=== PATIENT | female | born 1955 | race Asian ===

== ENCOUNTER 2021-07-19 10:49 | Emergency (ER) | payer BC, SELFPAY ==
[2021-07-19 10:57] VITALS: BP 167/78; PULSE 71; RESP 16; TEMP 36.8; O2SAT 100
[2021-07-19 11:03] VITALS: BP 167/78; PULSE 71; RESP 16; TEMP 36.8; O2SAT 100
--- NOTE | 2021-07-19 11:38 | ED.GENADULT ---
HPI - General Adult General Chief complaint: Skin/Abscess/Foreign Body Stated complaint: rash Source: patient Mode of arrival: ambulatory Limitations: no limitations History of Present Illness HPI narrative: Patient is a 65-year-old [place] who presents to the urgent care via POV for evaluation of a rash that has been present for 2 weeks. Patient reports the rash to be erythematous, pruritic, and vesicular., And lotion, CaloMist, and triple antibiotic has provided temporary relief. Heat worsens symptoms. Patient reports a history of hypertension. Related Data Home Medications Medication Instructions Recorded Confirmed alprazolam 07/19/21 chlorthalidone 07/19/21 clonidine HCl 07/19/21 clopidogrel 07/19/21 ergocalciferol (vitamin D2) 07/19/21 famotidine 07/19/21 lisinopril 07/19/21 metoprolol tartrate 07/19/21 rosuvastatin mg 07/19/21 Allergies Allergy/AdvReac Type Severity Reaction Status Date / Time codeine Allergy Mild SWELLING Unverified 11/06/17 10:14 CHERRIES Allergy Unknown Uncoded 11/06/17 10:14 Review of Systems Review of Systems: Denies recent/new changes in soaps, perfumes, lotions, detergents, and shampoos. Denies working with chemicals. Denies new or changes in medications/foods. Pertinent negatives fever, chills, sweats, change in appetite, malaise, poor p.o. intake, recent weight loss, change in appetite, myalgias, lymphadenopathy, LOC, dizziness, burning sensation, petechiae, pruritus, streaking, warmth, lesions, easy bruising, lip/tongue/throat swelling, facial swelling, abdominal pain, nausea, vomiting, numbness, tingling, loss of sensation, cough, wheezing, chest pain, and heart palpitations/murmurs. [facility] Past Medical History Medical History (Updated 07/19/21 @ 11:46 by JERICHO Garcia, ) Anxiety GERD (gastroesophageal reflux disease) Hyperlipidemia Hypertension Exam Narrative: GENERAL: Well-appearing, well-nourished, and in no acute distress. HEAD: Normocephalic, atraumatic. No facial swelling appreciated. EYES: PERRLA and EOMI. No evidence of erythema, swelling, or drainage. ENT: Nares clear, no rhinorrhea or epistaxis.Mucous membranes moist and pink. Uvula is midline without erythema and swelling. No evidence of obstruction, petechial rash, cobblestoning, lesions, ulcers, erythema, swelling, exudates, peritonsillar abscess, tenting, or drooling. Breath odor and voice normal. NECK: Supple. No Lymphadenopathy or nuchal rigidity appreciated. CHEST: Bilateral lung coronel are clear to auscultation. No respiratory distress. No evidence of cough or pleuritic cp upon examination. HEART: Regular rate and rhythm. No murmur, gallop, or rub heard. EXTREMITIES: Normal range of motion. No edema. SKIN: Warm, dry. No evidence of cellulitis, abscess, streaking, induration, abrasions/lacerations, petechiae, hematoma, contusion, drainage, or bleeding. Moderate generalized rash that is consistent with contact dermatitis. No facial involvement. NEURO: No focal deficits. Alert and oriented x3. SPECIAL OBSERVATIONS: Smiling. Laughing. No evidence of discomfort. Course Vital Signs Vital signs: Vital Signs Temperature 98.3 F 07/19/21 10:57 Pulse Rate 71 07/19/21 10:57 Respiratory Rate 16 07/19/21 10:57 Blood Pressure 167/78 H 07/19/21 10:57 Pulse Oximetry 100 07/19/21 10:57 Temperature 98.3 F 07/19/21 11:03 Pulse Rate 71 07/19/21 11:03 Respiratory Rate 16 07/19/21 11:03 Blood Pressure 167/78 H 07/19/21 11:03 Pulse Oximetry 100 07/19/21 11:03 Due to an elevated blood pressure, I had a detailed discussion with the patient and/or guardian regarding the need for follow-up with their primary care provider within the next 3-4 days. Patient verbalized understanding and agreed. Medical Decision Making Differential Diagnosis Differential Diagnosis: Contact/allergic dermatitis, atopic dermatitis, psoriasis, cellulitis, tinea infection, parasite
== END 2021-07-19 11:52 | disposition home or self-care (01) ==
PROVIDERS: Emergency Provider Nurse Practitioner Family
DX: L25.9 Unspecified contact dermatitis, unspecified cause (principal); F41.9 Anxiety disorder, unspecified; I10 Essential (primary) hypertension
CPT/HCPCS: 99203; G0463